=== PATIENT | female | born 1970 | race Caucasian/White ===

== ENCOUNTER → 2017-07-08 | Outpatient (CLI) | payer BC, OTHER ==
--- NOTE | 2017-07-08 19:29 | XCELERA REPORT ---
[address] [address] Transthoracic Echocardiogram Report Name: DAVE NORMAN Age: 47 yrs Gender: Female : 1970 Patient Status: Outpatient Patient Location: Study Date: 07/08/2017 08:56 AM Height: 67 in Weight: 275 lb BSA: 2.3 m2 Reason For Study: MURMUR Ordering Physician: JULIETH CRAFT Performed By: Crystal Beckett Interpretation Summary Aortic valve not well visualised, not entiirely sure if 3 cusps, no , no AR. Mild Mitral annular calcification, no MS, no MVP, and no MR but borderline LA enlargement by M Mode 42 mm No LVH, normal LVEF, no biplane anlaysis possible due to poor apical views. no LV diastolic dysfunction. No LV dilatation, incomplete LV segmental analysis. RH poorly seen mild TR with no pulm hypertension. Etiology of heart murmur uncertain, could be functional but could not rule out bicuspid aortic valve MMode/2D Measurements & Calculations RVDd: 2.8 cm LVIDd: 5.2 cmFS: 34.9 % Ao root diam: 3.4 cm IVSd: 0.98 cm LVIDs: 3.4 cmEDV(Teich): 130.8 ml LVPWd: 1.0 cmESV(Teich): 47.5 ml Ao root area: 9.1 cm2 EF(Teich): 63.7 % LA dimension: 3.7 cm LVOT diam: 2.2 cm LVOT area: 3.7 cm2 Doppler Measurements & Calculations MV E max lela: MV P1/2t max lela: Ao V2 max: LV V1 max P.6 cm/sec 110.1 cm/sec 161.5 cm/sec 6.0 mmHg MV A max lela: MV P1/2t: 80.1 msec Ao max PG: LV V1 max: 94.8 cm/sec MVA(P1/2t): 2.7 cm2 10.4 mmHg 122.9 cm/sec MV E/A: 1.2 MV dec slope: TONIA(V,D): 2.9 cm2 402.3 cm/sec2 PA V2 max: TR max lela: 85.4 cm/sec 228.0 cm/sec PA max PG: TR max P.8 mmHg 2.9 mmHg Left Ventricle The left ventricle is normal in size, thickness and function. There is normal left ventricular wall thickness. The left ventricular ejection fraction is normal. Doppler measurements suggest normal left ventricular diastolic function. Not all wall segments were well visualized. There is no thrombus. Right Ventricle The right ventricle is normal in size, thickness and function. Atria The right atrium is normal. The left atrium is borderline dilated. The interatrial septum is intact with no evidence for an atrial septal defect. Mitral Valve There is mild mitral annular calcification. There is no evidence of mitral valve prolapse. There is no mitral valve stenosis. There is no mitral regurgitation noted. Aortic Valve The aortic valve opens well. The aortic valve is not well visualized secondary to technical limitations. There is no aortic valve stenosis. No aortic regurgitation is present. Tricuspid Valve The tricuspid valve is not well visualized secondary to technical limitations. There is a mild amount of tricuspid regurgitation. Pulmonic Valve There is a trace or physiologic amount of pulmonic regurgitation. Great Vessels The aortic root is normal size. Effusions There is no pericardial effusion. I WMSI = 1.00 % Normal = 100 Segments Size X - Cannot 1 - Normal 2 - 3 - Akinetic4 - 1-2 small Interpret Hypokinetic Dyskinetic 3-5 moderate 5 - 6-14 large Aneurysmal 15-16 diffuse : JULIETH CRAFT > Steven Smith
== END ==
LOC: SP 08:45
PROVIDERS: ATTEND Family Medicine
DX: R01.1 Cardiac murmur, unspecified (principal)
CPT/HCPCS: 93306